=== PATIENT | male | born 1980 | race American Indian/Alaskan Native ===

== ENCOUNTER → 2020-07-21 08:42 | Outpatient (CLI) | payer MEDICAID, OTHER, SELFPAY ==
--- NOTE | 2020-07-21 | DI.US.S_ITS ---
PROCEDURE: US ABDOMEN COMPLETE INDICATIONS: RUQ ABDOMINAL PAIN TECHNIQUE: Real-time scanning was performed of the abdominal and retroperitoneal organs, with image documentation. COMPARISON: [facility], CT, CT CHEST ABD PELVIS W CON, 03/18/2017, 5:38. FINDINGS: This study is limited by body habitus. Study is further limited by bowel gas. Liver: The liver demonstrates prominent size. The liver demonstrates generalized mildly increased echogenicity. This decreases ultrasound sensitivity for detection of hepatic masses. Gallbladder: Removed. Biliary ducts: Not well seen. Pancreas: Visualized portions of the pancreas are sonographically normal. Spleen: Spleen is normal in size and homogeneous in echotexture. Kidneys: Kidneys are normal in size and echotexture. Right kidney measures 11.2 cm long; left kidney measures 12.7 cm long. No hydronephrosis or nephrolithiasis. No solid masses. Note is made of prominent perinephric fat on the right side. Aorta: Visualized aorta is normal in caliber at less than 3 cm. Iliacs: Not well seen. IVC: Not well seen. Miscellaneous: No free abdominal fluid. IMPRESSION: Status post cholecystectomy, without biliary dilatation. The liver demonstrates increased echogenicity. This finding is nonspecific, yet it is attributed to fatty infiltration. Dictated by: Ignacio Deluna M.D. on 07/21/2020 at 10:02 Approved by: Ignacio Deluna M.D. on 07/21/2020 at 10:04
== END ==
PROVIDERS: Family Provider Psychiatry & Neurology Neurology; Referring Provider Family Medicine; Visit Provider Family Medicine
DX: R10.11 Right upper quadrant pain (principal); Z90.49 Acquired absence of other specified parts of digestive tract
CPT/HCPCS: 76700